=== PATIENT | male | born 1985 | race Two or more races ===

== ENCOUNTER 2022-08-19 22:51 | Emergency (ER) | payer OTHER ==
[~2022-08-19] VITALS: Ht 177.8 cm; Wt 90.7 kg
[2022-08-20] MEDS ORDERED: CIPRODEX OTIC7.5 ML OT (02:28)
[2022-08-20] MEDS ORDERED: CIPRO500 MG PO (02:28)
[2022-08-20] MEDS ORDERED: BENADRYL25 MG PO (02:30)
[2022-08-20] MEDS ORDERED: MEDROLPACK PO (02:30)
== END 2022-08-20 02:34 | disposition home or self-care (01) ==
LOC: ER 22:51
DX: T78.40XA Allergy, unspecified, initial encounter (principal); X58.XXXA Exposure to other specified factors, initial encounter; H60.91 Unspecified otitis externa, right ear; Z91.013 Allergy to seafood

== ENCOUNTER 2024-06-14 22:26 | Emergency (ER) | payer OTHER ==
[~2024-06-14] VITALS: Ht 177.8 cm; Wt 90.7 kg
[~2024-06-14 22:26] MED LIST: BENADRYL25 MG PO; CIPRO500 MG PO; CIPRODEX OTIC7.5 ML OT; MEDROLPACK PO
[2024-06-14] MEDS ORDERED: CEFTRIAXONE SODIUM 1,000 MG VIAL IM ONE (23:30)
[2024-06-14] MEDS ORDERED: KETOROLAC TROMETHAMINE 60 MG VIAL IM ONE (23:30)
== END 2024-06-14 23:51 | disposition home or self-care (01) ==
LOC: ER 22:27
DX: H66.93 Otitis media, unspecified, bilateral (principal); Z91.013 Allergy to seafood